=== PATIENT | male | born 1950 | race Caucasian/White ===

== ENCOUNTER → 2017-06-03 11:25 | Outpatient (CLI) | payer MEDICARE, SELFPAY ==
[2017-06-03 14:23] LABS: Absolute Lymphocyte Count 2.35 X10^3/ul (0.83-4.51); Basophil# 0.03 X10^3/uL; Basophil% 0.4 % (0-1); Eosinophil# 0.23 X10^3/uL; Eosinophils% 3.4 % (0-5); Hematocrit 43.9 % (40-54); Hemoglobin 15.4 g/dl (13.0-16.5); Lymphocyte # 2.35 X10^3/ul (4.0); Mean Corp Hgb Conc 35.1 g/gl (32-36); Mean Corpuscular Hgb 30.9 pg (27.0-32.0); Mean Corpuscular Volume 88.2 fL (80-94); Mean Platelet Vol. 10.9 fl (6.2-12.0); Monocyte# 1.13 X10^3/uL; Monocyte% 16.8 % (0-10); Neutrophil # 2.97 X10^3/uL (2.7-7.7); Neutrophil % 44.3 % (47-70); Platelet Count 258 K/mm3 (150-450); RBC Distribution Width CV 13.7 % (11.6-14.6); RBC Distribution Width SD 44.1 fl (35.1-43.9); Red Blood Count 4.98 M/mm3 (4.6-6.2); White Blood Count 6.7 K/mm3 (4.4-11.0)
[2017-06-03 14:30] LABS: POSITIVE COUNT NO; POSITIVE DIFFERENTIAL NO; POSITIVE MORPHOLOGY NO
[2017-06-03 14:39] LABS: AST(SGOT) 26 U/L (15-37); Alanine Aminotransfer ALT/SGPT 34 U/L (16-61); Albumin, Serum 3.9 g/dL (3.2-5.0); Alkaline Phosphatase 78 U/L (45-117); Anion Gap 8 (5-15); BUN 6 mg/dL (7-18); BUN/Creat Ratio 8.2 RATIO (10-20); Calcium,Total 9.1 mg/dL (8.5-10.1); Chloride 100 mmol/L (98-107); Cholesterol 184 mg/dL (200); Creatinine, Serum 0.73 mg/dL (0.70-1.30); EST Glomerular Filtration Rate 115 mL/min (>60); Est Glom Filt Rate - Afr Amer 139 mL/min (>60); Globulin 4.1 g/dL (2.2-4.2); Glucose 125 mg/dL (74-106); High Density Lipoprotein 43 mg/dL; Potassium 4.5 mmol/L (3.5-5.1); Sodium Level 133 mmol/L (136-145); Triglycerides 196 mg/dL; Very Low Density Lipoprotein 39 mg/dL (5-40)
[2017-06-03 15:00] LABS: Hemoglobin A1c 6.3 % (4.2-6.3)
== END ==
PROVIDERS: Family Provider Family Medicine; PCP Family Medicine; Visit Provider Family Medicine
DX: Z12.11 Encounter for screening for malignant neoplasm of colon (principal); I10 Essential (primary) hypertension; E11.8 Type 2 diabetes mellitus with unspecified complications
CPT/HCPCS: 36415; 80053; 80061; 82274; 83036; 84443; 85025

== ENCOUNTER 2017-06-14 20:19 | Emergency (ER) | payer MEDICARE, SELFPAY ==
[2017-06-14 20:19] VITALS: BP 125/115; PULSE 78; RESP 20; TEMP 36.6; O2SAT 98; BMI 31.4
[2017-06-14 20:29] VITALS: BP 112/42; PULSE 66; RESP 22; O2SAT 97
[2017-06-14] MEDS: 0.9% Normal Saline 1,000 ML 1000 ML IV ×2 (21:05→23:17)
[2017-06-14] MEDS: Ondansetron 4 MG/2 ML Vial IV (21:08)
[2017-06-14] MEDS: Dicyclomine 20 MG/2 ML Vial IM (21:25)
[2017-06-14 21:30] LABS: Absolute Lymphocyte Count 2.34 X10^3/ul (0.83-4.51); Basophil# 0.03 X10^3/uL; Basophil% 0.3 % (0-1); Eosinophil# 0.14 X10^3/uL; Eosinophils% 1.4 % (0-5); Hematocrit 37.5 % (40-54); Hemoglobin 13.2 g/dl (13.0-16.5); Lymphocyte # 2.34 X10^3/ul (4.0); Lymphocyte % 23.4 % (19-41); Mean Corp Hgb Conc 35.2 g/gl (32-36); Mean Corpuscular Hgb 30.4 pg (27.0-32.0); Mean Corpuscular Volume 86.4 fL (80-94); Monocyte# 1.48 X10^3/uL; Monocyte% 14.8 % (0-10); Neutrophil % 59.9 % (47-70); Platelet Count 166 K/mm3 (150-450); RBC Distribution Width CV 13.6 % (11.6-14.6); RBC Distribution Width SD 43.1 fl (35.1-43.9); Red Blood Count 4.34 M/mm3 (4.6-6.2)
[2017-06-14 21:31] LABS: AST(SGOT) 37 U/L (15-37); Alanine Aminotransfer ALT/SGPT 36 U/L (16-61); Albumin, Serum 3.5 g/dL (3.2-5.0); Alkaline Phosphatase 75 U/L (45-117); Anion Gap 10 (5-15); BUN 4 mg/dL (7-18); BUN/Creat Ratio 5.6 RATIO (10-20); Bilirubin, Direct 0.25 mg/dL (0.00-0.30); Calcium,Total 7.8 mg/dL (8.5-10.1); Chloride 90 mmol/L (98-107); Creatinine, Serum 0.71 mg/dL (0.70-1.30); EST Glomerular Filtration Rate 118 mL/min (>60); Est Glom Filt Rate - Afr Amer 143 mL/min (>60); Estimated Creatinine Clearance 94.85 ml/min; Globulin 3.3 g/dL (2.2-4.2); Glucose 130 mg/dL (74-106); Lipase 193 U/L (73-393); Potassium 2.9 mmol/L (3.5-5.1); Protein, Total 6.8 g/dL (6.4-8.2); Sodium Level 129 mmol/L (136-145)
[2017-06-14 21:33] LABS: POSITIVE COUNT NO; POSITIVE DIFFERENTIAL NO; POSITIVE MORPHOLOGY NO
[2017-06-14 21:53] LABS: Bacteria 0 SEEN /hpf (None Seen); Mucous, Urine 0 SEEN /hpf (<or=2+); Red Blood Cells-Urine 0 SEEN /hpf (0-5); White Blood Cells 0 SEEN /hpf (0-5)
[2017-06-14 21:59] LABS: Color, Urine Yellow (Yellow); Glucose, Dipstick Normal (Normal); Ketone-Dipstick Negative (Negative); Leukocyte Esterase-Dipstick Negative /ul (Negative); Nitrite-Dipstick Negative (Negative); Occult Blood-Urine Negative /ul (Negative); Protein-Dipstick 30 mg/dl (Negative); Urine Bilirubin Dipstick Negative (Negative); Urine Clarity Sl. Cloudy (Clear); Urine Urobilinogen Normal (Normal)
[2017-06-14 22:09] LABS: Squamous Epithelial Cells - UA 0-5 SEEN /hpf (0-5)
--- NOTE | 2017-06-14 23:36 | ED.VISSUMM ---
- ER Visit Summary Date of Service: 06/14/17 Chief Complaint: Chronic abdominal pain History of Present Illness: The patient is a 66 M with a history of alcoholism and chronic abdominal pain for 1-1/2 years. He states that he has had an extensive evaluation for this pain with no conclusive cause found. It has been somewhat worse for the past week. He states that he has only been drinking beer and not been eating much food. He has been nauseated but has not vomited. His bowel movements have been normal. He was seen at [facility] emergency department today and had a negative CTA of his abdomen/pelvis. He was prescribed Bentyl and follow-up was arranged with gastroenterology. He presents here for a second opinion and also is requesting Ativan because he states that this typically works quite well for his pain. He has no back pain or urinary symptoms. Physical Examination: Vitals are within normal limits. He is not in distress. Neck is supple. Heart tones are regular without murmur. Lungs are clear bilaterally. Abdomen is not distended. It is soft. Bowel sounds are normal. No flank tenderness. No palpable hernias. Test Results: CBC was essentially normal here. Sodium was 129. Creatinine normal. Other laboratory studies unremarkable. We discussed repeating a CT scan but he did not want a repeat scan and states that he Arty had a normal scan today. Emergency Department Course and Treatment: He was observed and has no evidence of an acute surgical abdomen. This is a fairly chronic issue for him. His sodium was low here which could certainly been from his excessive beer intake. I spoke at length with him regarding the importance of stopping alcohol use for his long-term health. He does not want detox at this time. He was given Ativan here and did have marked improvement. I told him that he still needs to follow-up with a electrical manufacturing technician to look for an answer to his chronic pain. He will come back to the emergency department if he is any worse over the weekend. Also told him to see his primary care physician to have his BMP repeated this week to make sure that his sodium is improving. He was given 2 full liters of IV normal saline here. Treatment Plan: Follow-up with gastroenterology Disposition: Home in stable condition Impression: Abdominal pain uncertain etiology, hyponatremia This note was generated with [employer] dictation software. It may contain incorrect words, spelling, and punctuation that were not noted in review of the chart prior to signing ED Disposition - Plan for ED Patient: Chief Complaint: Abd Pain Instructions: ED Abdominal Pain Unkn Cause, ED Hyponatremia Referrals: Kenzie Bhatt [Primary Care Provider] - As soon as possible
--- NOTE | 2017-06-14 23:41 | ED.VISSUMM ---
- ER Visit Summary Date of Service: 06/14/17 Chief Complaint: [] History of Present Illness: The patient is a 66 M [] Physical Examination: [] Test Results: [] Emergency Department Course and Treatment: [] Treatment Plan: [] Disposition: [] Impression: [] This note was generated with [employer] dictation software. It may contain incorrect words, spelling, and punctuation that were not noted in review of the chart prior to signing ED Disposition - Plan for ED Patient: Chief Complaint: Abd Pain Instructions: ED Abdominal Pain Unkn Cause, ED Hyponatremia, ED Potassium Deficiency Prescriptions: Potassium Chloride 40 meq PO BID #40 [email or web address] Referrals: Kenzie Bhatt [Primary Care Provider] - As soon as possible
[2017-06-15] MEDS: LORazepam 1 MG Tablet PO (00:13)
[2017-06-15 00:16] VITALS: BP 121/60; PULSE 86; O2SAT 94
[2017-06-15 00:17] VITALS: BP 121/60; PULSE 86; O2SAT 94
== END 2017-06-15 00:21 | disposition home or self-care (01) ==
LOC: ED 20:47
PROVIDERS: Emergency Provider Emergency Medicine; Family Provider Family Medicine; PCP Family Medicine
DX: R10.9 Unspecified abdominal pain (principal); G89.29 Other chronic pain; E87.6 Hypokalemia; E87.1 Hypo-osmolality and hyponatremia; F10.20 Alcohol dependence, uncomplicated; Z72.0 Tobacco use; Z79.899 Other long term (current) drug therapy
CPT/HCPCS: 80048; 80076; 81001; 83690; 85025; 96361; 96372; 96374; 99284; J7030; A4216; J2405

== ENCOUNTER 2020-09-24 20:31 | Emergency (ER) | payer MEDICARE, SELFPAY ==
[2020-09-24 20:33] VITALS: BP 141/98; PULSE 97; RESP 18; TEMP 37; O2SAT 96; BMI 36.0
--- NOTE | 2020-09-24 20:50 | EKG12_ITS ---
Test Reason : SUBSTANCE ABUSE Blood Pressure : / mmHG Vent. Rate : 094 BPM Atrial Rate : 094 BPM P-R Int : 148 ms QRS Dur : 072 ms QT Int : 374 ms P-R-T Axes : 058 024 067 degrees QTc Int : 467 ms Somatic/Motion Artifact Sinus rhythm with occasional Premature ventricular complexes Right atrial enlargement Nonspecific ST and T wave abnormality Abnormal ECG Confirmed by LUIS E PETERSON, MARY ANNE ([id number]), image editor MANNIE HUERTA ([id number]) on 09/28/2020 9:38:32 AM Referred By: MARCELLUS Confirmed By:MARY ANNE KIMBROUGH MD
--- NOTE | 2020-09-24 20:50 | EX.ED.SAOD ---
HPI History of Present Illness Chief Complaint: Substance Abuse Narrative Narrative: 69-year-old male presenting with history of EtOH abuse. Patient states that over the last 1.5 to 2 weeks he has been drinking 1/5 of guerda as well as about 10 beers. Prior to this he states he drank 15 beers a day. Patient's last detox was 2 to 3 years ago and he states that he had to be hospitalized due to low potassium and he was in the ICU. He states that currently he is on day 3 of sobriety. He denies any drinking in the last 3 days. He denies drug abuse. He states that he feels generally weak in his legs and he is sweating a lot. He complains of some dyspnea with exertion. Patient has not had a fever or cough. Patient states that he does not want to stay for detox but he does want to have his electrolytes checked. He states that if he has significant abnormalities on his blood work he would be willing to stay in detox. [facility] Medical History Anxiety Diabetes Diabetic neuropathy History of IBS History of pneumothorax Hypertension Home Medications calcium carbonate 1,200 mg PO BID 06/14/17 [History Last Taken Unknown] dicyclomine 10 mg PO Q6H PRN 06/14/17 [History Last Taken Unknown] hydrochlorothiazide 12.5 mg PO DAILY 06/14/17 [History Last Taken Unknown] latanoprost 1 drp LEFT EYE QHS 06/14/17 [History Last Taken Unknown] lisinopril [Zestril] 40 mg PO DAILY 06/14/17 [History Last Taken Unknown] omeprazole 20 mg PO BID 06/14/17 [History Last Taken Unknown] potassium chloride 40 meq PO BID #40 tab.er.prt 06/14/17 [Rx Last Taken Unknown] potassium chloride [K-Dur] 40 meq PO BID 06/14/17 [History Last Taken Unknown] timolol maleate 1 drp LEFT EYE BID 06/14/17 [History Last Taken Unknown] Allergy/AdvReac Type Severity Reaction Status Date / Time Sulfa (Sulfonamide Allergy Unknown Verified 09/24/20 20:32 Antibiotics) Surgical History H/O eye surgery Social History Smoking Status: Current every day smoker tobacco type: cigarettes ROS ROS ED Constitutional Constitutional ED: Reports sweats and other Details: Generalized weakness ; Denies chills or fever(s) Eyes Eyes: Denies blurry vision or change in vision ENT ENT ED: Denies rhinorrhea or sore throat Cardiovascular Cardiovascular: Denies chest pain, palpitations or racing heartbeat Respiratory/Chest Respiratory/Chest: Reports cough; Denies dyspnea or sputum Gastrointestinal Gastrointestinal: Denies abdominal pain, nausea or vomiting Genitourinary Genitourinary ED: Denies dysuria or urinary frequency Musculoskeletal Musculoskeletal: Reports myalgias; Denies arthralgias, back pain or neck pain Integumentary Denies Abrasions or rash Neurologic Neurologic: Denies headache(s) or paresthesias Psychiatric Psychiatric: Denies anxiety or depression Endocrine Endocrinology: Denies polydipsia or polyuria Hematologic/Lymphatic Hematologic/Lymphatic: Denies easy bleeding or easy bruising EXAM Physical Exam Const Vital Signs: 09/24/20 20:33 Temperature 98.6 F Temperature Source Oral Pulse Rate 97 Respiratory Rate 18 Blood Pressure 141/98 H Blood Pressure Mean 112 Pulse Ox 96 Oxygen Delivery Method Room Air Positive obese General Appearance ED: NAD; Negative for pallor Nutritional Appearance: obese HEENT Reports moist mucous membranes atraumatic Eyes PERRL and EOMs intact bilaterally General Eye ED: Negative for pale conjunctiva or scleral icterus Neck no lymphadenopathy and supple Resp normal respiratory effort and clear to auscultation bilaterally Cardio regular rate and regular rhythm GI soft to palpation, non-tender, non-distended and no masses Neuro oriented x3, CN's II-XII intact bilaterally and no sensory deficits noted Sensorium / Orientation: alert Motor Exam: strength 5/5 throughout Psych mental status grossly normal and thought process normal Skin General Skin Exam: Negative for jaundice or pallor Lesions: no lesions Rashes: no rashes MDM MDM MDM Narrative Medical decision making narrative: Patient presenting with history of EtOH abuse and stating that he wants to have his kidney function electrolytes checked as he had concern of this last time he detoxed. He states he is not having significant withdrawal symptoms yet patient's blood work shows a normal CBC and normal renal function with electrolytes being normal. His total bilirubin is 1.4, direct bilirubin 0.64, AST 137, ALT 64, alk phos 3. This is new from previous however he has not not had lab work recently with the last blood work in our system from 2018 which would be 3 years ago. High-sensitivity troponin is negative. Patient had an EKG performed. Dyspnea which showed a normal sinus rhythm with a ventricular rate of 96 bpm without sign of ST elevation or depression however there is some motion artifact but I do not believe there is anything acute on my interpretation. Chest x-ray one-view portable shows no acute cardiopulmonary process. Alcohol is less than 3.0. At this point the patient states that he does not want to stay in the hospital for detox and he will try to detox at home. He was counseled on his transaminitis. He does not have any abdominal pain. Patient was given return precautions should he have worsening symptoms of detox from alcohol. Impression: 1. History of EtOH abuse 2. Transaminitis Lab Data Labs: Laboratory Results - last 24 hr 09/24/20 09/24/20 09/24/20 20:57 20:57 20:57 WBC 8.9 RBC 4.70 Hgb 14.7 Hct 43.7 MCV 93.0 MCH 31.3 MCHC 33.6 RDW Std Deviation 54.0 H RDW Coeff of Edward 15.9 H Plt Count 152 MPV 10.2 Immature Gran % (Auto) 0.600 Neut % (Auto) 59.6 Lymph % (Auto) 23.7 [place] % (Auto) 13.5 H Eos % (Auto) 2.0 Baso % (Auto) 0.6 Absolute Neuts (auto) 5.3 Absolute Lymphs (auto) 2.12 Nucleated RBC % 0 Sodium 134 L Potassium 3.8 Chloride 100 Carbon Dioxide 26.0 Anion Gap 8 BUN 16 Creatinine 0.63 L Estim Creat Clear Calc 62.35 Est GFR (MDRD) Af Amer 164 Est GFR (MDRD) Non-Af 135 BUN/Creatinine Ratio 25.5 H Glucose 184 H Calcium 8.5 Magnesium 1.8 Total Bilirubin 1.40 H Direct Bilirubin 0.64 H AST 137 H ALT 64 H Alkaline Phosphatase 315 H Troponin I High Sens < 3.0 L Total Protein 7.6 Albumin 3.0 L Globulin 4.6 H Lipase 305 Ur Drug Screen Comment Ethyl Alcohol Cancelled 09/24/20 09/24/20 21:50 22:00 WBC RBC Hgb Hct MCV MCH MCHC RDW Std Deviation RDW Coeff of Edward Plt Count MPV Immature Gran % (Auto) Neut % (Auto) Lymph % (Auto) [place] % (Auto) Eos % (Auto) Baso % (Auto) Absolute Neuts (auto) Absolute Lymphs (auto) Nucleated RBC % Sodium Potassium Chloride Carbon Dioxide Anion Gap BUN Creatinine Estim Creat Clear Calc Est GFR (MDRD) Af Amer Est GFR (MDRD) Non-Af BUN/Creatinine Ratio Glucose Calcium Magnesium Total Bilirubin Direct Bilirubin AST ALT Alkaline Phosphatase Troponin I High Sens Total Protein Albumin Globulin Lipase Ur Drug Screen Comment Ethyl Alcohol < 3.0 Radiography Diagnostic Testing: Radiology Impression Chest X-Ray 09/24/20 21:18 IMPRESSION: No acute radiographic abnormalities. Electronically Signed: Pedro Leonardo MD at 21:50 EDT Tel , Service support , Discharge Plan Triage Chief Complaint: Substance Abuse ED Provider: Camacho Styles Dx/Rx/DC Orders Prescriptions: No Action latanoprost 1 DROP bottle 1 drp Left Eye QHS RF: 0 calcium carbonate 600 MG tablet 1,200 mg PO BID RF: 0 potassium chloride [Klor-Con M20] 20 MEQ tablet 40 meq PO BID RF: 0 timolol maleate 1 DROP Opth.Btl 1 drp Left Eye BID RF: 0 omeprazole 20 MG capsule 20 mg PO BID RF: 0 hydrochlorothiazide 25 MG tablet 12.5 mg PO DAILY RF: 0 lisinopril [Zestril] 40 MG tablet 40 mg PO DAILY RF: 0 dicyclomine 10 MG capsule 10 mg PO Q6H PRN (Reason: Pain) RF: 0 potassium chloride 20 MEQ Tab.Er.Prt 40 meq PO BID Qty: 40 RF: 0 Primary Care Provider: Yan Krueger
--- NOTE | 2020-09-24 21:03 | EKG12_ITS ---
Test Reason : SUBSTANCE ABUSE Blood Pressure : / mmHG Vent. Rate : 096 BPM Atrial Rate : 096 BPM P-R Int : 184 ms QRS Dur : 064 ms QT Int : 360 ms P-R-T Axes : 064 020 042 degrees QTc Int : 454 ms Somatic/Motion Artifact Normal sinus rhythm Low voltage QRS Abnormal ECG Confirmed by LUIS E PETERSON, MARY ANNE ([id number]), newspaper copy editor MANNIE HUERTA ([id number]) on 09/29/2020 10:57:04 AM Referred By: MARCELLUS Confirmed By:MARY ANNE KIMBROUGH MD
[2020-09-24 21:06] LABS: Absolute Lymphocyte Count 2.12 X10^3/uL (0.83-4.51); Absolute Neutrophil Count 5.3 X10^3/uL (2.0-7.7); Basophil# 0.05 X10^3/uL; Basophil% 0.6 % (0-1); Eosinophil# 0.18 X10^3/uL; Hematocrit 43.7 % (40-54); Hemoglobin 14.7 g/dL (13.0-16.5); Lymphocyte # 2.12 X10^3/ul (0.83-4.51); Lymphocyte % 23.7 % (19-41); Mean Corp Hgb Conc 33.6 g/dL (32-36); Mean Corpuscular Hgb 31.3 pg (27.0-32.0); Mean Platelet Vol. 10.2 fl (6.2-12.0); Monocyte# 1.21 X10^3/uL; Monocyte% 13.5 % (0-10); NRBC Flagged by Analyzer 0 % (0-5); Neutrophil # 5.32 X10^3/uL (2.7-7.7); Neutrophil % 59.6 % (47-70); Platelet Count 152 K/mm3 (150-450); RBC Distribution Width CV 15.9 % (11.6-14.6); White Blood Count 8.9 K/mm3 (4.4-11.0)
--- NOTE | 2020-09-24 21:18 | RAD_ITS ---
INDICATION: dyspnea EXAMINATION/TECHNIQUE: X-RAY - XR Chest 1 View COMPARISON: None. FINDINGS: The lungs are clear. Tortuous and calcified thoracic aorta. The heart is not enlarged. Elevation of the right hemidiaphragm. No pleural effusion or pneumothorax. No acute osseous abnormalities. RAD/Chest 1 View (Portable) IMPRESSION: No acute radiographic abnormalities. Electronically Signed: Pedro Leonardo MD at 21:50 EDT Tel , Service support ,
[2020-09-24 21:29] LABS: AST(SGOT) 137 U/L (15-37); Alanine Aminotransfer ALT/SGPT 64 U/L (16-61); Alkaline Phosphatase 315 U/L (45-117); Anion Gap 8 (5-15); BUN 16 mg/dL (7-18); BUN/Creat Ratio 25.5 RATIO (10-20); Bilirubin, Direct 0.64 mg/dL (0.00-0.30); Calcium,Total 8.5 mg/dL (8.5-10.1); Chloride 100 mmol/L (98-107); Creatinine, Serum 0.63 mg/dL (0.70-1.30); EST Glomerular Filtration Rate 135 mL/min (>60); Est Glom Filt Rate - Afr Amer 164 mL/min (>60); Estimated Creatinine Clearance 62.35 ml/min; Globulin 4.6 g/dL (2.2-4.2); Glucose 184 mg/dL (74-106); Lipase 305 U/L (73-393); Magnesium 1.8 mg/dL (1.6-2.6); Potassium 3.8 mmol/L (3.5-5.1); Protein, Total 7.6 g/dL (6.4-8.2); Sodium Level 134 mmol/L (136-145); Troponin-I HS < 3.0 pg/mL (3.0-78.5)
--- NOTE | 2020-09-24 21:31 | CM.ED ---
ALVARO Note: Referral Reason: Alcohol use Referral Source: Case Find SW met with patient and female in the room with patient. Patient gave permission to speak in the presence of his female visitor. Patient reports he has not had alcohol for 3 days. Patient said that he is not wanting detox and I don't wanna the aram mcdonaldpy social service technician.. that never works for me.. it makes me mad. Patient said that he will do it myself. SW asked if that has worked in the past and he said it will work this time. Patient declined [facility] referral. ALVARO offered [facility] information and he declined. updated. Plan: To be determined Radha MORA
[2020-09-24 22:17] LABS: Bacteria 0 SEEN /hpf (None Seen); Red Blood Cells-Urine 0 SEEN /hpf (0-5); Squamous Epithelial Cells - UA 0 SEEN /hpf (0-5); White Blood Cells 0 SEEN /hpf (0-5)
[2020-09-24 22:29] LABS: Alcohol, Blood (Medical)-Serum < 3.0 mg/dL
[2020-09-24 22:34] LABS: Color, Urine Amber (Yellow); Glucose, Dipstick Normal (Normal); Urine Bilirubin Dipstick 3 mg/dL (Negative); Urine Clarity Cloudy (Clear)
[2020-09-24 22:35] LABS: Ketone-Dipstick 15 mg/dl (Negative); Leukocyte Esterase-Dipstick 25 /ul (Negative); Nitrite-Dipstick Positive (Negative); Occult Blood-Urine 25 /ul (Negative); Protein-Dipstick 500 mg/dl (Negative); Specific Gravity, Urine 1.025 (1.002-1.030); Urine Urobilinogen 12 mg/dl (Normal)
[2020-09-24 23:05] LABS: Mucous, Urine 3+ /hpf (<or=2+)
[2020-09-24 23:06] LABS: Calcium Oxalate Crystals Ur 1+ /hpf (<or=2+); Hyaline Cast 0-5 SEEN /lpf (0-5)
[2020-09-24 23:16] VITALS: BP 136/80; PULSE 86; RESP 18; O2SAT 98
[2020-09-24 23:18] LABS: Amphetamine Urine VISTA NEGATIVE (<1000 ng/mL); Barbiturate Urine VISTA NEGATIVE (< 200 ng/mL); Benzodiazepine Urine VISTA NEGATIVE (< 200 ng/mL); Cocaine Urine VISTA NEGATIVE (< 300 ng/mL); Ecstacy Urine VISTA NEGATIVE (< 500 ng/mL); Methadone Urine VISTA NEGATIVE (< 300 ng/mL); PCP Urine VISTA NEGATIVE (< 25 ng/mL); THC Urine VISTA NEGATIVE (< 50 ng/mL); Vista UDS pH Range 5
== END 2020-09-24 23:17 | disposition home or self-care (01) ==
PROVIDERS: Emergency Provider Student in an Organized Health Care Education/Training Program; PCP Family Medicine
DX: R74.01 Elevation of levels of liver transaminase levels (principal); R53.1 Weakness; R06.09 Other forms of dyspnea; F17.210 Nicotine dependence, cigarettes, uncomplicated; F10.21 Alcohol dependence, in remission
CPT/HCPCS: 71045; 80048; 80076; 80307; 81001; 82077; 83690; 83735; 84484; 85025; 87426; 93005; 99285; A4216